=== PATIENT | male | born 1960 | race Caucasian/White ===

== ENCOUNTER 2017-11-28 15:29 | Emergency (ER) | payer BC ==
[2017-11-28 16:17] VITALS: BP 121/79
--- NOTE | 2017-11-28 16:40 | UC ---
Respiratory Complaint HPI - HPI Summary HPI Summary: Pt c/o productive cough, with one episode of hemoptysis X 10 days. - History of Current Complaint Hx Obtained From: Patient Onset/Duration: Gradual Onset, Lasting Days, Still Present Timing: Intermittent Episodes Severity Initially: Mild Severity Currently: None Pain Intensity: 0 Character: Cough: Productive Aggravating Factors: Deep Breaths, Recumbent Position Alleviating Factors: Nothing Associated Signs And Symptoms: Positive: Nasal Congestion - Risk Factors Pulmonary Embolism Risk Factors: Negative Cardiac Risk Factors: Elevated Lipids Pseudomonas Risk Factors: Negative Tuberculosis Risk Factors: Negative <Mayelin Lorenz NP - Last Filed: 11/28/17 16:43> <Keri Zuniga - Last Filed: 11/28/17 20:24> - History of Current Complaint Chief Complaint: UCRespiratory Stated Complaint: COUGH/FEVER Time Seen by Provider: 11/28/17 16:35 - Allergies/Home Medications Allergies/Adverse Reactions: Allergies Allergy/AdvReac Type Severity Reaction Status Date / Time Penicillins Allergy See Comment Verified 11/28/17 16:19 Home Medications: Home Medications Oseltamivir CAP* [Tamiflu CAP*] 75 mg PO BID 11/28/17 [History Confirmed ] PMH/Surg Hx/FS Hx/Imm Hx Previously Healthy: Yes Endocrine History: Dyslipidemia Other History Of: Negative For: HIV, Hepatitis B, Hepatitis C - Surgical History Surgical History: Yes Surgery Procedure, Year, and Place: hernia repair 10/12 at [facility]; same day surgery - Family History Known Family History: Positive: None, Cardiac Disease, Hypertension - Social History Occupation: Employed Full-time Lives: With Family Alcohol Use: Occasionally Substance Use Type: None Smoking Status (MU): Never Smoked Tobacco Have You Smoked in the Last Year: No - Immunization History Most Recent Influenza Vaccination: March 2015 Hx Tetanus, Diphtheria Vaccination: Yes Vaccination Up to Date: Yes <Mayelin Lorenz NP Last Filed: 11/28/17 16:43> Review of Systems Constitutional: Negative Skin: Negative Eyes: Negative ENT: Negative Respiratory: Cough Cardiovascular: Negative Gastrointestinal: Negative Genitourinary: Negative Motor: Negative Neurovascular: Negative Musculoskeletal: Negative Neurological: Negative Psychological: Negative Is Patient Immunocompromised?: No All Other Systems Reviewed And Are Negative: Yes <Mayelin Lorenz NP - Last Filed: 11/28/17 16:43> Physical Exam Triage Information Reviewed: Yes Appearance: Well-Appearing Vital Signs: Initial Vital Signs Temp 97.6 F 11/28/17 16:13 Pulse 89 11/28/17 16:13 Resp 18 11/28/17 16:13 BP 121/79 11/28/17 16:13 Pulse Ox 96 11/28/17 16:13 Vital Signs Reviewed: Yes Eye Exam: Normal ENT Exam: Normal Neck exam: Normal Respiratory Exam: Normal Cardiovascular Exam: Normal Musculoskeletal Exam: Normal Neurological Exam: Normal Psychological Exam: Normal Skin Exam: Normal <Mayelin Lorenz NP - Last Filed: 11/28/17 16:43> Vital Signs: Initial Vital Signs Temp 97.6 F 11/28/17 16:13 Pulse 89 11/28/17 16:13 Resp 18 11/28/17 16:13 BP 121/79 11/28/17 16:13 Pulse Ox 96 11/28/17 16:13 <Keri Zuniga - Last Filed: 11/28/17 20:24> Diagnostic Evaluation - Laboratory O2 Sat by Pulse Oximetry: 96 <Mayelin Lorenz NP - Last Filed: 11/28/17 16:43> Respiratory Course/Dx - Differential Dx/Diagnosis Differential Diagnosis/HQI/PQRI: Bronchitis, Other - post viral cough Provider Diagnoses: Bronchitis <Mayelin Lorenz NP Last Filed: 11/28/17 16:43> Discharge - Sign-Out/Discharge Documenting (check all that apply): Discharge/Admit/Transfer - Billing Disposition and Condition Condition: STABLE Disposition: HOME <Mayelin Lorenz NP - Last Filed: 11/28/17 16:43> - Billing Disposition and Condition Condition: STABLE Disposition: HOME <Keri Zuniga - Last Filed: 11/28/17 20:24> - Discharge Plan Condition: Stable Disposition: HOME Prescriptions: Azithromycin TAB* [Zithromax TAB (Z-TRACY) 250 mg #6 tabs] 2 tab PO .TODAY, THEN 1 DAILY #1 tracy Benzonatate CAP* [Tessalon 100 MG CAP*] 100 mg PO Q8H PRN #30 cap PRN Reason: Cough predniSONE TAB* [Deltasone TAB*] 30 mg PO DAILY #12 tab Patient Education Materials: Acute Bronchitis (ED) Referrals: Lonnie Aranda MD [Primary Care Provider] - If Needed Attestation Statement User Type: Provider - I was available for consult. This patient was seen by the JOHN. The patient was not presented to, seen by, or examined by me. -Sole <Keri Zuniga - Last Filed: 11/28/17 20:24>
== END 2017-11-28 16:47 | disposition home or self-care (01) ==
LOC: UCCORT 15:29
DX: J40 Bronchitis, not specified as acute or chronic (principal); Z88.2 Allergy status to sulfonamides
CPT/HCPCS: 99212; G0463